=== PATIENT | male | born 1985 | race African-American/Black ===

== ENCOUNTER → 2016-10-28 | Outpatient (CLI) | payer OTHER ==
[~2016-10-28] MED LIST: METHACHOLINE KIT (J7674) INH ONE
--- NOTE | 2016-10-28 14:09 | PFTRPT ---
Tech: Dayana Sloan [employer] Age: 30 Sex: Male Race: Black Height: 65.00 Inches Weight: 154.00 Lbs BSA: 1.77 Diagnosis: R05 METHACHOLINE CHALLENGE REPORT: ORDERING PROVIDER: AMANDA Dorantes DATE OF SERVICE: 10/28/16 INTERPRETATION: The study was of excellent technical quality. Under protocol, methacholine was administered. At a dose of 10 mg (63.875 CDUs), a 29% decline in the FEV1 was noted. The PC20 of 4.48 is felt to be significant. Flow rates returned to baseline post bronchodilator administration. IMPRESSION: Positive methacholine challenge study. MTDD
== END ==
LOC: M CARPUL 12:54
PROVIDERS: ATTEND Nurse Practitioner Adult Health
DX: R05 Cough (principal); R94.2 Abnormal results of pulmonary function studies

== ENCOUNTER → 2016-11-04 | Outpatient (CLI) | payer OTHER ==
--- NOTE | 2016-11-05 04:07 | REP ---
Clinical: Shortness of breath. Comparison: Chest x-rays dated 10/14/2016, 03/22/2016. Findings: The bilateral lung trimble are symmetric, well aerated, and clear. No pulmonary parenchymal consolidation, nodule or mass lesion appreciated. No evidence for interstitial disease. 3 mm chronic focus identified adjacent to the left major fissure (image 39). No pleural effusion/reaction or pneumothorax. Tracheobronchial tree is patent. No obvious adenopathy. Thoracic aorta, heart and pericardium appear normal by noncontrast evaluation. Surrounding musculoskeletal structures are intact. Impression: Normal noncontrast chest CT. Signed by Yao Syed MD 11/05/2016 03:58 A
== END ==
LOC: M RAD 17:31
PROVIDERS: ATTEND Nurse Practitioner Adult Health
DX: R91.8 Other nonspecific abnormal finding of lung field (principal); R05 Cough; R06.02 Shortness of breath